=== PATIENT | female | born 1960 | race Caucasian/White ===

== ENCOUNTER 2022-10-15 19:49 | Emergency (ER) | payer BC, SELFPAY ==
[2022-10-15 20:03] VITALS: BP 137/81; PULSE 63; RESP 15; TEMP 36.6; O2SAT 100; BMI 19.3
--- NOTE | 2022-10-15 20:12 | DI.RAD.S_ITS ---
PROCEDURE: XR HUMERUS RT 2V INDICATIONS: Fall with pain above elbow. TECHNIQUE: 2 views of the humerus were acquired. COMPARISON: None. FINDINGS: Bones: There is a comminuted fracture of the right humeral head and neck. No suspicious bony lesions. Soft tissues: No suspicious soft tissue calcifications. IMPRESSION: 1. Comminuted fracture of the right humeral head and neck. Dictated by: Govind Anna M.D. on 10/15/2022 at 21:34 Approved by: Govind Anna M.D. on 10/15/2022 at 21:35
--- NOTE | 2022-10-15 21:26 | ED.FALL ---
HPI - Fall General Chief Complaint: Fall Stated Complaint: fall, rt shoulder pain Time Seen by Provider: 10/15/22 20:32 Source: patient Mode of arrival: Wheelchair History of Present Illness HPI Narrative: 61-year-old female who is here for evaluation of right shoulder pain. She states that [place] she was out walking her dog and her dog pulled her over. She stated that she actually landed on her left side but it is her right upper extremity that is injured. She is on anticoagulation but did not hear head. No loss of consciousness. No other injuries from the event. Has had issues with this shoulder in the past with her rotator cuff. She states she does have limited mobility at baseline because of the rotator cuff issue. Related Data Previous Rx's Medication Instructions Recorded hydrocodone 5 mg-acetaminophen 325 1 tab PO Q4-6H PRN pain #20 tabs 10/15/22 mg tablet Allergies Allergy/AdvReac Type Severity Reaction Status Date / Time cholecalciferol (vitamin D3) Allergy Anaphylaxis Verified 10/15/22 20:11 [From Vitamin D3] heparin Allergy Rash Verified 10/15/22 20:11 levofloxacin Allergy Anaphylaxis Verified 10/15/22 20:11 Review of Systems Constitutional Constitutional: Reports system reviewed and no additional complaints, except as documented Cardiovascular Cardiovascular: Reports system reviewed and no additional complaints, except as documented Musculoskeletal Musculoskeletal: Reports system reviewed and no additional complaints, except as documented Integumentary/Breasts Skin/Breast: Reports system reviewed and no additional complaints, except as documented Neurologic Neurologic: Reports system reviewed and no additional complaints, except as documented Patient History Social History Smoking Status: Never smoker Smoking Status: Never smoker alcohol intake frequency: a few times a week Substance Use Type: does not use Exam Initial Vital Signs Initial Vital Signs: Vital Signs Temperature 97.9 F 10/15/22 20:03 Pulse Rate 63 10/15/22 20:03 Respiratory Rate 15 10/15/22 20:03 Blood Pressure 137/81 10/15/22 20:03 Pulse Oximetry 100 10/15/22 20:03 Oxygen Delivery Method Room Air 10/15/22 20:03 HENMT Head: normal to inspection and normocephalic Cardio Pulses: radial pulses present on the right Skin General: no rashes or lesions noted Neuro Sensory Exam: no sensory deficits noted Extrem Other: Her right wrist is unremarkable. Has quite a bit of discomfort with any sort of movement of her right humerus. Procedures Orthopedic Splinting/Casting Injury #1: Side: right Upper Extremity Injury Location: shoulder Upper Extremity Immobilizer: sling/shoulder immobilizer Post splinting neuro exam: no change Post splinting vascular exam: no change Placed by: Nursing Course Orders Ordered: ED Orders 10/15/22 20:12 XR humerus RT 2V Stat Discontinued Medications Hydrocodone Bitart/Acetaminophen (Hydrocodone/Acet 5/325 Tablet) 1 tab PO NOW ONE Stop: 10/15/22 21:27 Last Admin: 10/15/22 21:37 Dose: 1 tab Documented By: VLADISLAV Hydrocodone Bitart/Acetaminophen (Hydrocodone/Acet 5/325 Prepack) 1 bottle MISC SEEINSTR ONE Stop: 10/15/22 21:27 Last Admin: 10/15/22 21:37 Dose: 1 bottle Documented By: [email or web address] Vital Signs Vital signs: Vital Signs - 8 hr 10/15/22 20:03 Temperature 97.9 F Pulse Rate 63 Respiratory Rate 15 Blood Pressure 137/81 Pulse Oximetry 100 Oxygen Delivery Method Room Air MDM - Fall Imaging Data Extremity x-ray #1: Radiologist's Impression: PROCEDURE:? XR HUMERUS RT 2V ? INDICATIONS:? Fall with pain above elbow. ? TECHNIQUE:? 2 views of the humerus were acquired.? ? COMPARISON:? None. ? FINDINGS:? ? Bones:? There is a comminuted fracture of the right humeral head and neck.? No suspicious bony lesions.? ? Soft tissues:? No suspicious soft tissue calcifications.? ? IMPRESSION:? ? 1. Comminuted fracture of the right humeral head and neck.? [facility] Narrative Medical decision making narrative: Patient does have a right proximal humerus fracture. Has limited range of mobility of her shoulder at baseline. She was placed in a sling. [place] They were given a prescription for pain medication and the copy of the x-rays on a CD. They were instructed that they need to follow-up with an orthopedic surgeon when they return home. She was given return precautions. She expressed understanding and agreement. Discharge Plan Departure Patient Disposition: Home Clinical Impression: Fracture of proximal end of humerus Instructions: How to Use a Sling, DI for Shoulder Fracture Activity Restrictions/Additional Instructions: The sling is for your comfort although I suspect that you are going to want to wear it for the next couple days. I would not be surprised if you get some extensive bleeding around your shoulder and right side of your chest given the nature of your injury. Continue to take all of your medications as directed. When you return home contact your primary doctor and an orthopedic doctor for a follow-up. Return to the emergency department for new symptoms. Prescriptions: New hydrocodone-acetaminophen 5-325 mg tablet 1 tab PO Q4-6H PRN (Reason: pain) Qty: 20 0RF Stand Alone Forms: Patient Portal/API
[2022-10-15] MEDS: HYDROCODONE/ACET 5/325 TABLET 1 TAB PO (21:37)
[2022-10-15] MEDS: HYDROCODONE/ACET 5/325 PREPACK 1 BOTTLE MISC (21:37)
== END 2022-10-15 22:03 | disposition home or self-care (01) ==
PROVIDERS: Emergency Provider Emergency Medicine
DX: S42.201A Unspecified fracture of upper end of right humerus, initial encounter for closed fracture (principal); W18.30XA Fall on same level, unspecified, initial encounter
CPT/HCPCS: 73060; 99283